=== PATIENT | male | born 1980 | race African-American/Black ===

== ENCOUNTER 2017-01-02 15:30 | Emergency (ER) | payer MEDICARE, MEDICAID ==
[~2017-01-02] VITALS: Ht 175.3 cm; Wt 74.8 kg
[~2017-01-02 15:30] MED LIST: KENALOG 0.1% CR15 GM APPLIC
--- NOTE | 2017-01-02 16:03 | Emergency Room Report ---
History of Present Illness General Chief Complaint: Puncture Wound Source: Patient Present Illness HPI 36-year-old male presents emergency department complaining of pain, erythema, mild swelling to the medial right fourth digit with progression of erythema in a linear fashion up into the forearm. Patient denies fevers or chills patient reports pain as 6/10 in severity. Patient states he sustained small puncture/ paper cut wound when reaching into his pocket to grab a gum box. Patient states he is not up-to-date with his tetanus vaccination. he denies tender palpable lymph nodes in his axilla. Patient denies weakness or inability to flex and extend the affected digit. he denies history of immunocompromise. Denies numbness tingling or loss of sensation or gross motor movements of the extremities, incontinence of bowel or bladder. Denies CP, Palpitations, LOC, AMS , dizziness, Changes in Vision, Sensation, paresthesias, or a sudden severe headache. Allergies: Coded Allergies: No Known Allergies (Unverified , 12/20/13) Patient History Past Medical History: see triage record Past Surgical History: none Pertinent Family History: none Reviewed Nursing Documentation: PMH: Agreed, PSxH: Agreed Nursing Documentation-PMH Past Medical History: No Stated History Hx Hypertension: No Hx Diabetes: No Review of Systems All Other Systems: negative except mentioned in HPI Physical Exam Vital Signs Date Time Temp Pulse Resp B/P Pulse Ox O2 Delivery O2 Flow Rate FiO2 01/02/17 15:46 98.6 79 14 148/75 98 Room Air Sp02 EP Interpretation: reviewed, normal General Appearance: no apparent distress, alert, GCS 15, non-toxic Head: normocephalic, atraumatic Eyes: bilateral eye PERRL, bilateral eye normal inspection ENT: hearing grossly normal, normal pharynx, no angioedema, normal voice Neck: full range of motion, supple/symm/no masses Respiratory: lungs clear, normal breath sounds, speaking full sentences Cardiovascular #1: regular rate, rhythm, no edema, normal capillary refill Musculoskeletal: back normal, gait/station normal, normal range of motion, tender - ttp to medial side of th eright 4th digit, small skin abrasion noted with surrounding erythema, and lymphangitis up into the right forearm, FROM , no LAD Neurologic: alert, oriented x3, responsive, motor strength/tone normal, sensory intact, speech normal Psychiatric: judgement/insight normal, memory normal, mood/affect normal Skin: no rash, warm/dry, well hydrated, other - erythema of the medial asp. of right 4th digit with lymphangitis into the forearm. Lymphatic: no adenopathy Medical Decision Making PA Attestation Dr. braun is my supervising Physician whom patient management has been discussed with. Diagnostic Impression: Primary Impression: Lymphangitis Additional Impression: Puncture wound ER Course 36-year-old male presents emergency department complaining of pain, erythema, mild swelling to the medial right fourth digit with progression of erythema in a linear fashion up into the forearm. Patient denies fevers or chills patient reports pain as 6/10 in severity. Patient states he sustained small puncture/ paper cut wound when reaching into his pocket to grab a gum box. Patient states he is not up-to-date with his tetanus vaccination. he denies tender palpable lymph nodes in his axilla. Patient denies weakness or inability to flex and extend the affected digit. he denies history of immunocompromise. Ddx considered but are not limited to cellulitis, lymphangitis, gout, musculoskeletal injury, laceration Vital signs: are WNL, pt. is afebrile, non-tachycardic. H&PE are most consistent with lymphangitis, mild right UE. ORDERS: none required at this time, the diagnosis is clinical ED INTERVENTIONS: -Tetanus vaccination is administered. -Bactrim DS PO d/w pt. that he will start oral abx, and to watch for progression of infection, or development of fevers, and to return to ED immediately if these occur. DISCHARGE: At this time pt. is stable for d/c to home. Will provide printed patient care instructions, and any necessary prescriptions. Care plan and follow up instructions have been discussed with the patient prior to discharge. Last Vital Signs Date Time Temp Pulse Resp B/P Pulse Ox O2 Delivery O2 Flow Rate FiO2 01/02/17 15:46 98.6 79 14 148/75 98 Room Air Disposition: HOME, SELF-CARE Condition: Stable Scripts Cephalexin* (KEFLEX*) 500 Mg Capsule 500 MG ORAL EVERY 12 HOURS for 7 Days, #14 CAP 0 Refills Prov: Caridad Tejada P.A. 01/02/17 Trimethoprim/Sulfamethoxazole 160/800* (BACTRIM DS TABLET*) 1 Each Tablet 1 TAB ORAL TWICE A DAY for 7 Days, #14 TAB Prov: Caridad Tejada 01/02/17 Patient Instructions: Puncture Wound Additional Instructions: Take medications as directed. Follow up with PCP in 3-5 days Return sooner to ED if new symptoms occur, or current symptoms become worse. Continue to look for signs of worsening of infection - Please note that this Emergency Department Report was dictated using Chattyinfrastructure developer technology software, occasionally this can lead to erroneous entry secondary to interpretation by the dictation equipment. Caridad Tejada Jan 02, 2017 16:03
[2017-01-02] MEDS ORDERED: CEPHALEXIN500 MG ORAL (16:04)
[2017-01-02] MEDS ORDERED: BACTRIM DS TAB1 EAC1 ORAL (16:04)
[2017-01-02] MEDS ORDERED: TdaP Vaccine 0.5ml Syr IM ONE (16:15)
[2017-01-02] MEDS ORDERED: Bactrim DS (160mg/800mg) tab ORAL ONE (16:15)
[2017-01-02 17:56] VITALS: BP 138/68
== END 2017-01-02 16:30 | disposition home or self-care (01) ==
LOC: EMR 16:21
DX: I89.1 Lymphangitis (principal); S61.234A Puncture wound without foreign body of right ring finger without damage to nail, initial encounter; W45.8XXA Other foreign body or object entering through skin, initial encounter; Y93.9 Activity, unspecified; Y92.9 Unspecified place or not applicable; Z23 Encounter for immunization
CPT/HCPCS: 90471; 90715; 96372; 99283

== ENCOUNTER 2018-04-13 02:18 | Emergency (ER) | payer MEDICARE, MEDICAID ==
[~2018-04-13] VITALS: Ht 175.3 cm; Wt 65.8 kg
[~2018-04-13 02:18] MED LIST changes: +BACTRIM DS TAB1 EAC1 ORAL; +CEPHALEXIN500 MG ORAL
[2018-04-13] MEDS ORDERED: NKM (02:24)
[2018-04-13 02:37] VITALS: BP 140/79
[2018-04-13] MEDS ORDERED: BACTRIM DS TAB1 EAC1 ORAL (03:08)
--- NOTE | 2018-04-13 03:09 | Emergency Room Report ---
History of Present Illness General Chief Complaint: Wound Recheck/Suture Removal Source: Patient Present Illness [facility] This 37-year-old male presents with right finger pain. There is no trauma. He had a puncture wound to the right middle finger about 7 months ago. He got infected and had lymphangitis. Got better with antibiotics. The last couple days now he noticed some pain at the tip of the finger was swelling in that area. Radiating up the finger. No redness. Pain is 7 out of 10. Allergies: Coded Allergies: No Known Allergies (Unverified , 12/20/13) Patient History Past Medical History: see triage record, old chart reviewed Past Surgical History: none Pertinent Family History: none Social History: Denies: smoking Immunizations: other Reviewed Nursing Documentation: PMH: Agreed; PSxH: Agreed Nursing Documentation-PMH Past Medical History: No Stated History Hx Hypertension: No Hx Diabetes: No Review of Systems Eye: Denies: eye pain, blurred vision ENT: Denies: ear pain, nose congestion, throat swelling Respiratory: Denies: cough, shortness of breath Cardiovascular: Denies: chest pain, palpitations Gastrointestinal: Denies: abdominal pain, diarrhea, nausea, vomiting Musculoskeletal: Reports: joint pain; Denies: back pain Skin: Denies: rash Neurological: Denies: headache, numbness Endocrine: Denies: increased thirst, increased urine Hematologic/Lymphatic: Denies: easy bruising All Other Systems: negative except mentioned in HPI Physical Exam Vital Signs Date Time Temp Pulse Resp B/P (MAP) Pulse Ox O2 Delivery O2 Flow Rate FiO2 04/13/18 02:21 97.1 63 18 140/79 98 Room Air 97.2 vitals normal Sp02 EP Interpretation: reviewed, normal General Appearance: well appearing, no apparent distress, alert Head: normocephalic, atraumatic Eyes: bilateral eye PERRL, bilateral eye EOMI ENT: hearing grossly normal, normal pharynx Neck: full range of motion, supple, no meningismus Respiratory: chest non-tender, lungs clear, normal breath sounds Cardiovascular #1: regular rate, rhythm, no murmur Gastrointestinal: normal bowel sounds, non tender, no mass, no organomegaly, no bruit, non-distended Musculoskeletal: back normal, gait/station normal, normal range of motion, other - Right ring finger: There is edema and tenderness to the distal phalanx and pad. No felon. No paronychia. Full range of motion of MCP, PIP, DIP joint. Sensation normal. Neurologic: alert, oriented x3 Psychiatric: mood/affect normal Skin: warm/dry Medical Decision Making Diagnostic Impression: Primary Impression: Cellulitis of finger of right hand ER Course Patient with cellulitis of his finger. No abscess seen. We'll discharge home with antibiotics. No necrotizing fasciitis. No septic joint. Last Vital Signs Date Time Temp Pulse Resp B/P (MAP) Pulse Ox O2 Delivery O2 Flow Rate FiO2 04/13/18 02:37 97.2 63 18 140/79 98 Room Air 97.2 Status: unchanged Disposition: HOME, SELF-CARE Condition: Stable Scripts Trimethoprim/Sulfamethoxazole 160/800* (BACTRIM DS TABLET*) 1 Each Tablet 1 TAB ORAL Q12H, #14 TAB 0 Refills Prov: JOSE ROSENTHAL M.D. 04/13/18 Additional Instructions: Clean finger with peroxide. Apply antibiotic ointment. Follow-up with your doctor within 7 days for recheck. Return if worse. JOSE ROSENTHAL M.D. Apr 13, 2018 03:09
[2018-04-13 03:14] VITALS: BP 140/79
== END 2018-04-13 03:16 | disposition home or self-care (01) ==
LOC: EMR 03:05
DX: L03.011 Cellulitis of right finger (principal)
CPT/HCPCS: 99283

== ENCOUNTER 2019-08-26 02:05 | Emergency (ER) | payer BC, MEDICAID ==
[~2019-08-26] VITALS: Ht 175.3 cm; Wt 65.8 kg
[~2019-08-26 02:05] MED LIST changes: +NKM
[2019-08-26 02:16] VITALS: BP 140/86
[2019-08-26] MEDS ORDERED: CLINDAMYCIN HC300 MG ORAL (02:19)
--- NOTE | 2019-08-26 02:19 | Emergency Room Report ---
History of Present Illness General Chief Complaint: Puncture Wound Source: Patient Present Illness HPI Is a 38-year-old male who is right-hand dominant. Presents with chief complaint of finger pain. Onset about a couple days. He has some redness and tenderness over the DIP joint of his third finger on the right hand. About a year and half ago he actually had a puncture wound to get infected in the same spot. There was streaking up his hand to his forearm. He require antibiotics. Now there is no trauma. Started yesterday. Painful with palpation and movement. No fever chills but no redness. Pain is 1-2 out of 10. Allergies: Coded Allergies: No Known Allergies (Unverified , 08/26/19) Patient History Past Medical History: see triage record, old chart reviewed Past Surgical History: none Pertinent Family History: none Social History: Denies: smoking Immunizations: other Reviewed Nursing Documentation: PMH: Agreed; PSxH: Agreed Nursing Documentation-PMH Hx Hypertension: No Hx Diabetes: No Review of Systems Eye: Denies: eye pain, blurred vision ENT: Denies: ear pain, nose congestion, throat swelling Respiratory: Denies: cough, shortness of breath Cardiovascular: Denies: chest pain, palpitations Gastrointestinal: Denies: abdominal pain, diarrhea, nausea, vomiting Musculoskeletal: Denies: back pain, joint pain Skin: Denies: rash Neurological: Denies: headache, numbness Endocrine: Denies: increased thirst, increased urine Hematologic/Lymphatic: Denies: easy bruising All Other Systems: negative except mentioned in HPI Physical Exam Vital Signs Date Time Temp Pulse Resp B/P (MAP) Pulse Ox O2 Delivery O2 Flow Rate FiO2 08/26/19 02:07 97.9 70 16 140/86 (104) 97 Room Air Vitals with high blood pressure Sp02 EP Interpretation: reviewed, normal General Appearance: well appearing, no apparent distress, alert Head: normocephalic, atraumatic Eyes: bilateral eye PERRL, bilateral eye EOMI ENT: hearing grossly normal, normal pharynx Neck: full range of motion, supple, no meningismus Respiratory: chest non-tender, lungs clear, normal breath sounds Cardiovascular #1: regular rate, rhythm, no murmur Gastrointestinal: normal bowel sounds, non tender, no mass, no organomegaly, no bruit, non-distended Musculoskeletal: back normal, normal range of motion, gait/station normal, other - Right third finger: There is some mild tenderness and redness and edema to the DIP joint and middle phalanx. Full range of motion. No crepitance. Psychiatric: mood/affect normal Medical Decision Making Diagnostic Impression: Primary Impression: Cellulitis of finger of right hand ER Course This patient presents with tenderness and mild redness to the finger. May be early cellulitis. Dose of antibiotics given here. Will discharge home. Last Vital Signs Date Time Temp Pulse Resp B/P (MAP) Pulse Ox O2 Delivery O2 Flow Rate FiO2 08/26/19 02:07 97.9 70 16 140/86 (104) 97 Room Air Status: improved Disposition: HOME, SELF-CARE Condition: Stable Scripts Clindamycin Hcl (CLINDAMYCIN HCL) 300 Mg Capsule 300 MG ORAL THREE TIMES A DAY, #21 CAP Prov: Keyon Begum MD 08/26/19 Additional Instructions: Keep wound clean. Clean with hydroperoxide. Follow-up with your doctor in 7 days. Return if symptoms worsen. Keyon Begum MD Aug 26, 2019 02:19
[2019-08-26 02:25] VITALS: BP 138/89
[2019-08-26] MEDS ORDERED: Clindamycin 150mg cap ORAL ONE (02:30)
== END 2019-08-26 02:25 | disposition home or self-care (01) ==
LOC: EMR 02:20
DX: L03.011 Cellulitis of right finger (principal)
CPT/HCPCS: 99282

== ENCOUNTER 2020-04-24 20:11 | Emergency (ER) | payer BC, MEDICAID ==
[~2020-04-24] VITALS: Ht 175.3 cm; Wt 65.8 kg
[~2020-04-24 20:11] MED LIST changes: +CLINDAMYCIN HC300 MG ORAL
[2020-04-24 20:30] VITALS: BP 126/77
--- NOTE | 2020-04-24 20:30 | NUR ---
ED Nurse Note: Pt walked into ED for c/o swelling to third digit on R hand for the past couple of days. Pt notes he has had cellulitis on the hand in the past. Pt reports mild pain to digit on R hand that radiates up R arm. Pt is aaox4, breathing is normal and unlabored. NAD. Pt is ambulatory with steady gait. No cough, SOB or fever.
[2020-04-24] MEDS ORDERED: CLINDAMYCIN HC300 MG ORAL (20:56)
--- NOTE | 2020-04-24 20:58 | Emergency Room Report ---
History of Present Illness General Chief Complaint: Skin Rash/Abscess Source: Patient Present Illness HPI 39-year-old male with history of recurrent cellulitis here with skin erythema and pain for 1 day. Patient says that he suffered a puncture wound of the right middle finger yesterday and he woke this morning noticing redness of the skin on the finger streaking up his extensor surface of his right hand towards his right forearm. He has had this before several times and each time requiring antibiotic treatment as an outpatient for cellulitis. Denies any IV drug use. No fevers, chills, shortness of breath or lightheadedness. Says he is unaware of what punctured his hand yesterday. Allergies: Coded Allergies: No Known Allergies (Unverified , 08/26/19) COVID-19 Screening Contact w/high risk pt: No Experienced COVID-19 symptoms?: No COVID-19 Testing performed BAKERY ASSOCIATE: No Nursing Documentation-[facility] Past Medical History: No Stated History Hx Hypertension: No Hx Diabetes: No Review of Systems All Other Systems: negative except mentioned in HPI Physical Exam Vital Signs Date Time Temp Pulse Resp B/P (MAP) Pulse Ox O2 Delivery O2 Flow Rate FiO2 04/24/20 20:29 62 14 126/77 (93) 97 Room Air Sp02 EP Interpretation: reviewed, normal General Appearance: no apparent distress, alert, GCS 15, non-toxic Head: normocephalic, atraumatic Eyes: bilateral eye normal inspection, bilateral eye PERRL ENT: hearing grossly normal, normal pharynx, no angioedema, normal voice Neck: full range of motion, supple/symm/no masses Respiratory: chest non-tender, lungs clear, normal breath sounds, speaking full sentences Cardiovascular #1: regular rate, rhythm, no edema Cardiovascular #2: 2+ carotid (R), 2+ carotid (L), 2+ radial (R), 2+ radial (L) , 2+ dorsalis pedis (R), 2+ dorsalis pedis (L) Gastrointestinal: normal bowel sounds, non tender, soft, non-distended, no guarding, no rebound Rectal: deferred Genitourinary: normal inspection, no CVA tenderness Musculoskeletal: back normal, normal range of motion, calf tenderness, gait/ station normal, non-tender, other - Small puncture wound to the flexor surface of the right third middle phalanx. No underlying abscess, induration. Erythematous skin extending from the site of the puncture wound extending proximally extensor surface of the right middle finger over the right palm and right wrist Neurologic: alert, motor strength/tone normal, oriented x3, sensory intact, responsive, speech normal Psychiatric: judgement/insight normal, memory normal, mood/affect normal, no suicidal/homicidal ideation Reflexes: 3+ bicep (R), 3+ bicep (L), 3+ tricep (R), 3+ tricep (L), 3+ knee (R) , 3+ knee (L) Lymphatic: no adenopathy Medical Decision Making Diagnostic Impression: Primary Impression: Cellulitis ER Course Ddx: lymphadenopathy/lymphangitis, sebaceous/ganglion cyst, abscess, cellulitis , tumor, insect bite, substance abuse, folliculitis 39-year-old male with history of recurrent cellulitis here with erythematous skin extending from a puncture wound that he suffered to the right middle finger yesterday. There is no evidence of any abscess, necrotizing fasciitis, and the patient was adamant that he does not use any IV drugs. There is no evidence of flexor tenosynovitis and normal range of motion of his digits and no fusiform swelling. There was however evidence of colitis and review of the patient's chart revealed that the patient received prescription for clindamycin last time he was in the emergency department for the same exact complaints. The patient says that his issues have resolved well with this treatment and so he was given a prescription for clindamycin to take for 7 days. He was told to come back to the emergency department if he has any worsening pain, swelling, extension of the erythema more proximally despite taking the antibiotics. He expressed understanding and was discharged. Last Vital Signs Date Time Temp Pulse Resp B/P (MAP) Pulse Ox O2 Delivery O2 Flow Rate FiO2 04/24/20 20:29 62 14 126/77 (93) 97 Room Air Disposition: HOME, SELF-CARE Condition: Stable Scripts Clindamycin Hcl (CLINDAMYCIN HCL) 300 Mg Capsule 300 MG ORAL THREE TIMES A DAY for 7 Days, #21 CAP Prov: Fabian Santoyo M.D. 04/24/20 Referrals: [facility] Patient Instructions: Cellulitis Additional Instructions: Please follow-up with your primary care doctor in the next 1 to 3 days to discuss this emergency department visit and for reevaluation. If you have any new or worsening symptoms please return to the emergency department for reevaluation. Fabian Santoyo M.D. Apr 24, 2020 20:58
[2020-04-24 21:00] VITALS: BP 122/78
--- NOTE | 2020-04-24 21:00 | NUR ---
ER DISCHARGE NOTE: Patient is cleared to be discharged per ERMD, pt is aox4, on room air, with stable vital signs. pt was given dc and prescription instructions, pt was able to verbalize understanding, pt id band removed. pt is able to ambulate with steady gait. pt took all belongings.
== END 2020-04-24 21:00 | disposition home or self-care (01) ==
LOC: EMR 20:35
DX: L03.011 Cellulitis of right finger (principal); S61.232A Puncture wound without foreign body of right middle finger without damage to nail, initial encounter; X58.XXXA Exposure to other specified factors, initial encounter; Y92.9 Unspecified place or not applicable
CPT/HCPCS: 99282

== ENCOUNTER 2020-06-18 05:45 | Emergency (ER) | payer BC, MEDICAID ==
[~2020-06-18] VITALS: Ht 175.3 cm; Wt 63.5 kg
[2020-06-18 05:53] VITALS: BP 123/75
--- NOTE | 2020-06-18 05:54 | NUR ---
Nurse Note: Pt walked in c/o redness and swelling on RT hand third digit. PT unk cause and stated this is his third time noticing the redness and swelling on the same site. Pt able to move finger. No drainage and puss noted. All safety measures met; will continue to monitor.
[2020-06-18] MEDS ORDERED: CLINDAMYCIN HC300 MG ORAL (06:05)
[2020-06-18 06:14] VITALS: BP 123/75
--- NOTE | 2020-06-18 06:14 | NUR ---
ED Nurse Note: Pt cleared by health care Provider for discharge. DC instructions/prescription was given and explained to pt and verbalized understanding of teachings; instructed pt to follow up with primary care physcian within one week. All medical deviecs such as ID band removed. Pt is AAO x4, ambulatory and left with all personal belongings.
--- NOTE | 2020-06-18 06:22 | Emergency Room Report ---
History of Present Illness General Chief Complaint: Skin Rash/Abscess Present Illness HPI 39-year-old male here with erythema right index finger. Patient has been here several times before with cellulitis of the right index finger treated with clindamycin successfully. Patient says that over the past 24 hours he began to notice similar symptoms of erythema and mild swelling of the distal right index finger. No IV drug use. No fevers or chills or focal numbness or weakness. No drainage at this time. Patient says "my hands get dry and cracked sometimes." However he denies any other trauma. Allergies: Coded Allergies: No Known Allergies (Unverified , 08/26/19) COVID-19 Screening Contact w/high risk pt: No Experienced COVID-19 symptoms?: No COVID-19 Testing performed PROP CUTTER: No Nursing Documentation-PMH Hx Hypertension: No Hx Diabetes: No Review of Systems All Other Systems: negative except mentioned in HPI Physical Exam Vital Signs Date Time Temp Pulse Resp B/P (MAP) Pulse Ox O2 Delivery O2 Flow Rate FiO2 06/18/20 05:50 99.0 58 16 123/75 (91) 99 Room Air Sp02 EP Interpretation: reviewed, normal General Appearance: no apparent distress, alert, GCS 15, non-toxic Head: normocephalic, atraumatic Eyes: bilateral eye normal inspection, bilateral eye PERRL ENT: hearing grossly normal, normal pharynx, no angioedema, normal voice Neck: full range of motion, supple/symm/no masses Respiratory: chest non-tender, lungs clear, normal breath sounds, speaking full sentences Cardiovascular #1: regular rate, rhythm, no edema Cardiovascular #2: 2+ carotid (R), 2+ carotid (L), 2+ radial (R), 2+ radial (L), 2+ dorsalis pedis (R), 2+ dorsalis pedis (L) Gastrointestinal: normal bowel sounds, non tender, soft, non-distended, no guarding, no rebound Rectal: deferred Genitourinary: normal inspection, no CVA tenderness Musculoskeletal: back normal, normal range of motion, gait/station normal, non- tender Neurologic: alert, motor strength/tone normal, oriented x3, sensory intact, responsive, speech normal Psychiatric: judgement/insight normal, memory normal, mood/affect normal, no suicidal/homicidal ideation Skin: other - Small area of erythema on the flexor surface of the right second distal interphalangeal joint. 4 mm region of induration Lymphatic: no adenopathy Medical Decision Making Diagnostic Impression: Primary Impression: Cellulitis ER Course ddx: lymphadenopathy/lymphangitis, sebaceous/ganglion cyst, abscess, cellulitis, tumor, insect bite, substance abuse, folliculitis, flexor tenosynovitis 39-year-old male here with small area of erythema and induration of the right index finger. Patient has been seen here several times in the past for cellulitis. He appears to have cellulitis with small abscess formation of the right index finger. There is no fusiform digit swelling, he had normal range of motion, and he had no other symptoms that would indicate the patient has flexor tenosynovitis. There were no open lesions that would indicate herpetic lamar. He denied IV drug use. Denied any hand trauma. Patient says that he has an ap pointment with a primary care physician in several days. Given prescription for clindamycin. Told to come back to the emergency department if he has any worsening of his pain, swelling, decreased range of motion, spreading of the erythema despite taking the antibiotics. He expressed understanding and was discharged. Last Vital Signs Date Time Temp Pulse Resp B/P (MAP) Pulse Ox O2 Delivery O2 Flow Rate FiO2 06/18/20 05:53 99.0 58 16 123/75 99 Room Air Disposition: HOME, SELF-CARE Condition: Stable Scripts Clindamycin Hcl (CLINDAMYCIN HCL) 300 Mg Capsule 300 MG ORAL THREE TIMES A DAY, #21 CAP Prov: Fabian Santoyo M.D. 06/18/20 Referrals: NOT CHOSEN IPA/,REFERRING (PCP) [facility] Patient Instructions: Rash Additional Instructions: Please follow-up with your primary care doctor in the next 1 to 3 days to discuss this emergency department visit and for reevaluation. If you have any new or worsening symptoms please return to the emergency department for reevaluation. Fabian Santoyo M.D. Jun 18, 2020 06:22
== END 2020-06-18 06:14 | disposition home or self-care (01) ==
LOC: EMR 06:02
DX: L03.011 Cellulitis of right finger (principal)
CPT/HCPCS: 99282

== ENCOUNTER 2020-07-25 05:21 | Emergency (ER) | payer BC, MEDICAID ==
[~2020-07-25] VITALS: Ht 175.3 cm; Wt 63.5 kg
[2020-07-25 05:30] VITALS: BP 127/74
--- NOTE | 2020-07-25 05:30 | NUR ---
ED Nurse Note: pt ambulated into ed from home [place] swelling on right middle fingers, denies pain/n/v/diarrhea. Pt states swelling and infection are recurring. pt aao x 4, ambulates with steady gait. vss no ss of distress noted. will continue to montor. awaiting ermd at bedside. awaiting further orders.
--- NOTE | 2020-07-25 05:34 | NUR ---
ED Nurse Note: ERMD at bedside
[2020-07-25] MEDS ORDERED: XERESE 5%-1% CRE5 GM TP (05:45)
[2020-07-25] MEDS ORDERED: ACYCLOVIR800 MG ORAL (05:45)
--- NOTE | 2020-07-25 05:53 | Emergency Room Report ---
History of Present Illness General Chief Complaint: General Complaint Source: Patient Present Illness HPI Disclaimer: Please note that this report is being documented using [employer] technology. This can lead to erroneous entry secondary to incorrect interpretation by the dictating instrument. HPI: Is a 39-year-old male presenting to the emergency department complaining of finger infection. He is right-hand dominant. Patient states over the past year he has been having recurrent finger infection starting as redness and swelling over the right middle finger over the DIPJ, distal and middle phalanx. He states he is usually treated with clindamycin and resolved. Last treated in June. States he first noticed redness this morning which is the first sign. He states occasionally he will have skin blistering but has not occurred yet. He did have some prodromal numbness and tingling on the ulnar portion of the r ight middle finger where the rash always appears. He states the rash and swelling does not cross the midline. Denies trauma, prior injury. Denies numbness, tingling. No swelling in the digit yet. Denies injecting any medications or drugs. Otherwise in his usual state of health. PMH: Reviewed PSH: Reviewed Allergies: Reviewed Social Hx: Reviewed Allergies: Coded Allergies: No Known Allergies (Unverified , 08/26/19) COVID-19 Screening Contact w/high risk pt: No Experienced COVID-19 symptoms?: No COVID-19 Testing performed CRITICAL CARE PHYSICIAN: No Nursing Documentation-PMH Past Medical History: No Stated History Hx Hypertension: No Hx Diabetes: No Review of Systems All Other Systems: negative except mentioned in HPI Physical Exam Vital Signs Date Time Temp Pulse Resp B/P (MAP) Pulse Ox O2 Delivery O2 Flow Rate FiO2 07/25/20 05:22 98.1 61 16 127/74 (91) 98 Room Air General: Awake and alert, no acute distress HEENT: NC/AT. EOMI. Resp: Normal work of breathing Skin: Intact. There is mild erythema over the middle and distal phalanx over the ulnar aspect of the right middle finger. Small pale blisterlike lesions present. No fluctuance. There is no fusiform swelling. Skin is nontender. MSK: Normal tone and bulk. Moving all extremities. No obvious deformity. Full range of motion with flexion extension of all digits on the right hand. No swelling of the volar or dorsal aspect. No tenderness anatomic snuffbox. Full range of motion of the wrist. Neuro: Awake and alert. Mentating appropriately Medical Decision Making Diagnostic Impression: Primary Impression: Herpetic lamar ER Course This a 39-year-old male presenting for evaluation of right middle finger redness. Patient believes he is getting recurrent bacterial infections that are usually treated with clindamycin. This may represent a herpetic lamar i nfection. The patient has no evidence of trauma, flexor tenosynovitis, overlying cellulitis at this time. There may be early vesicle formations. Will treat with topical and oral acyclovir, wrapped and keep the region covered. Discussed contact precautions with patient. He may follow-up with his PMD outpatient testing for viral cultures to confirm diagnosis. At this time, does not appear to be a cellulitis and the patient is amenable to trying antivirals as opposed to antibiotics again. Do not believe he requires emergent labs or imaging in the emergency department at this time. He stable for outpatient follow-up. Instructed to return with new or worsening symptoms. Last Vital Signs Date Time Temp Pulse Resp B/P (MAP) Pulse Ox O2 Delivery O2 Flow Rate FiO2 07/25/20 05:30 61 16 Room Air 07/25/20 05:30 98.1 127/74 98 Disposition: HOME, SELF-CARE Condition: Stable Scripts Acyclovir/Hydrocortisone (XERESE 5%-1% CREAM) 5 Gm Cream..g. 5 GM TP BID for 5 Days, #20 GM Prov: Mal Huntley MD 07/25/20 Acyclovir* (ZOVIRAX*) 800 Mg Tablet 800 MG ORAL BID for 5 Days, #10 TAB Prov: Mal Huntley MD 07/25/20 Referrals: [facility] Marla Beasley [facility]. [facility] Patient Instructions: Herpetic Lamar Additional Instructions: Keep the finger covered until blistering has resolved. Do not pick at the skin to release any of the blisters. Take the medication as prescribed. Follow-up with your doctor for definitive testing. Return with new or worsening symptoms. Mal Huntley MD Jul 25, 2020 05:53
[2020-07-25 05:56] VITALS: BP 122/73
--- NOTE | 2020-07-25 05:56 | NUR ---
ER DISCHARGE NOTE: Patient is cleared to be discharged home per ERMD, pt is aox4, 98% on room air, with stable vital signs. pt was given dc and prescription instructions, pt was able to verbalize understanding, pt id band removed without complications. pt is able to ambulate with steady gait. pt took all belongings.
== END 2020-07-25 05:56 | disposition home or self-care (01) ==
LOC: EMR 05:38
DX: B00.89 Other herpesviral infection (principal)
CPT/HCPCS: 99282